=== PATIENT | male | born 1955 | race Caucasian/White ===

== ENCOUNTER 2020-09-07 07:46 | Day surgery (SDC) | payer MEDICARE, OTHER ==
--- NOTE | 2020-09-04 07:17 | PCM.SN.2 ---
- Free Text/Narrative Note: Left selective femoral nerve block at the adductor canal for post-procedure pain control under US guidance requested by Dr. Rivera. Time Out: 1315 Start: 1316 End: 1328 Chart reviewed. Consent signed. Questions answered. Appropriate monitors applied. Time out performed. Left mid-shaft femur identified with ultrasound, scanning medially of femur, the femoral artery in the adductor canal visualized, and the femoral nerve located laterally to the artery. The skin was prepped lateral to the ultrasound probe with chlorahexadine times two. The 21ga 4 insulated block needle was inserted under direct ultrasound guidance into the adductor canal. 20mL of 0.5% ropivacaine with 1:200,000 epinephrine was injected circumferentially around the nerve with intermittent negative aspiration noted. Patient tolerated the procedure well. Sterile technique noted along with sterile gloves, mask, and sterile probe cover. See picture on progress note and vital signs on nurses notes. Block completed in PACU. Thank you, Marlin Amos CRNA
[~2020-09-07 07:46] MED LIST: EPINEPHrine 1 MG/ML SDV ONE; Lactated Ringers 1,000 ML IV SCH; Lidocaine 1%/Sod Bicarbonate in NS 8.4% 1 ML Syringe IDERM PRN; Ropivacaine 0.5% 5 MG/ML 30 ML SDV ONE; Sodium Chloride 0.9% 10 ML Syringe FLUSH PRN
[2020-09-07] MEDS ORDERED: Triamcinolone Acetonide 40 MG/ML 1 ML SDV ONE (08:24)
--- NOTE | 2020-09-07 08:47 | PCM.PREANE ---
Preanesthetic Assessment - Procedure Proposed Procedure: Left Total Knee Arthroplasty with Right Knee Steroid Injection - Anesthesia/Transfusion/Family Hx Anesthesia History: Prior Anesthesia Without Reaction Family History of Anesthesia Reaction: No Transfusion History: Prior Transfusion Without Reaction Intubation History: Unknown - Review of Systems General: No Symptoms Pulmonary: No Symptoms (2 beers per day History of a touch of asthma no inhaler noted) Cardiovascular: No Symptoms (HTN), Dyspnea on Exertion Gastrointestinal: No Symptoms (History of constipation after surgery; "stomach gets paralyzed.") Neurological: No Symptoms (Lower back pain rated: 0/10 right knee pain 7/10, left knee 4/10) Other: Reports: Easy Bruising, Sinus Problem (allergic rhinitis), Neck Pain (arthritis with extension), Depression (situational) - Physical Assessment NPO Status Date: 09/06/20 NPO Status Time: 17:00 Vital Signs: Last Vital Signs Temp 36.6 C 09/07/20 07:50 Pulse 94 09/07/20 07:50 Resp 18 09/07/20 07:50 BP 135/95 H 09/07/20 07:50 Pulse Ox 95 09/07/20 07:50 Height: 1.78 m Weight: 123.377 kg ASA Class: 3 Mental Status: Alert & Oriented x3 Airway Class: Mallampati = 2 Dentition: Reports: Normal Dentition, Caries Thyro-Mental Finger Breadths: 3 Mouth Opening Finger Breadths: 3 ROM/Head Extension: Full Lungs: Clear to Auscultation, Normal Respiratory Effort Cardiovascular: Regular Rate, Regular Rhythm, No Murmurs - Lab Values: All labs reviewed and noted and within acceptable ranges to proceed with scheduled procedure. - Imaging/EKG Impressions: Stress Test: negative, EF= 66-70% EKG NSR with RBBB rate= 100 - Allergies Allergies/Adverse Reactions: Allergies Allergy/AdvReac Type Severity Reaction Status Date / Time erythromycin base Allergy Nausea Verified 09/04/20 12:17 morphine Allergy Rash Verified 09/04/20 12:17 - Anesthesia Plan Pre-Op Medication Ordered: None - Acknowledgements Anesthesia Type Planned: Spinal (Left Adductor Canal Block under US guidance for post operative pain control requested by Dr. Rivera.) Pt an Appropriate Candidate for the Planned Anesthesia: Yes Alternatives and Risks of Anesthesia Discussed w Pt/Guardian: Yes Pt/Guardian Understands and Agrees with Anesthesia Plan: Yes PreAnesthesia Questionnaire HEENT History: Reports: Allergic Rhinitis, Impaired Vision, Other (See Below) Other HEENT History: wears glasses Cardiovascular History: Reports: None Respiratory History: Reports: None Gastrointestinal History: Reports: Cholelithiasis, Other (See Below) Other Gastrointestinal History: incisional hernia with repair x 2, small intesting surgery (multiple) Genitourinary History: Reports: None MOLD CLOSER HELPER History: Reports: None Musculoskeletal History: Reports: Osteoarthritis, Other (See Below) Other Musculoskeletal History: low back pain, knee pain Neurological History: Reports: None Psychiatric History: Reports: None Endocrine/Metabolic History: Reports: None Hematologic History: Reports: None Immunologic History: Reports: None Oncologic (Cancer) History: Reports: None Dermatologic History: Reports: None - Infectious Disease History Infectious Disease History: Reports: None - Past Surgical History Head Surgeries/Procedures: Reports: None HEENT Surgical History: Reports: None Cardiovascular Surgical History: Reports: None Respiratory Surgical History: Reports: None GI Surgical History: Reports: Appendectomy, Cholecystectomy Female Surgical History: Reports: None Male Surgical History: Reports: None Endocrine Surgical History: Reports: None Neurological Surgical History: Reports: None Oncologic Surgical History: Reports: None Dermatological Surgical History: Reports: None - SUBSTANCE USE Tobacco Use Status *Q: Never Tobacco User Days Per Week of Alcohol Use: 7 Number of Drinks Per Day: 2 Total Drinks Per Week: 14 Recreational Drug Use History: No - HOME MEDS Home Medications: Home Meds Acetaminophen [Tylenol] 650 mg PO Q4H PRN 09/04/20 [History] Cholecalciferol (Vitamin D3) [Vitamin D3] 5,000 unit PO DAILY 09/04/20 [History] Loratadine [Claritin] 10 mg PO DAILY 09/04/20 [History] Losartan [Cozaar] 25 mg PO DAILY 09/04/20 [History] guaiFENesin [Mucinex] 600 mg PO BID PRN 09/04/20 [History] Aspirin [Aspirin EC] 325 mg PO BID #84 tab 09/07/20 [Rx] Cyclobenzaprine [Flexeril] 10 mg PO BID PRN #20 tab 09/07/20 [Rx] oxyCODONE 5 - 10 mg PO Q4H PRN #30 tab 09/07/20 [Rx] - CURRENT (IN HOUSE) MEDS Current Meds: Current Medications Epinephrine HCl 0.3 mg/Cefuroxime Sodium 750 mg/Ketorolac Tromethamine 30 mg/Sodium Chloride 7.9 ml 0 mg .XX ASDIRECTED PRN PRN Reason: Pain Stop: 09/07/20 13:00 Lactated Ringer's (Ringers, Lactated) 1,000 mls @ 125 mls/hr IV ASDIRECTED RAJIV Stop: 09/07/20 23:00 Lidocaine/Sodium Bicarbonate (Lidocaine 1%/Sod Bicarbonate In Ns 8.4% 1 Ml Syringe) 0.25 ml IDERM ONETIME PRN PRN Reason: Prior to IV Start Stop: 09/07/20 18:00 Sodium Chloride (Sodium Chloride 0.9% 10 Ml Syringe) 10 ml FLUSH ASDIRECTED PRN PRN Reason: Keep Vein Open Stop: 09/07/20 18:00 Discontinued Medications Bupivacaine HCl (Bupivacaine 0.25% 10 Ml Sdv) Confirm Administered Dose 10 ml .ROUTE .STK-MED ONE Stop: 09/07/20 08:25 Epinephrine HCl (Epinephrine 1 Mg/Ml Sdv) Confirm Administered Dose 1 mg .ROUTE .STK-MED ONE Stop: 09/07/20 06:16 Ropivacaine (Ropivacaine 0.5% 5 Mg/Ml 30 Ml Sdv) Confirm Administered Dose 30 ml .ROUTE .STK-MED ONE Stop: 09/07/20 06:16 Tranexamic Acid (Tranexamic Acid 1,000 Mg/10 Ml Amp) Confirm Administered Dose 1,000 mg .ROUTE .STK-MED ONE Stop: 09/07/20 08:25 Triamcinolone Acetonide (Triamcinolone Acetonide 40 Mg/Ml 1 Ml Sdv) Confirm Administered Dose 80 mg .ROUTE .STK-MED ONE Stop: 09/07/20 08:25 Vancomycin HCl (Vancomycin 1 Gm Sdv) Confirm Administered Dose 1 gm .ROUTE .STK- MED ONE Stop: 09/07/20 08:25
[2020-09-07] MEDS ORDERED: Propofol 200 MG/20 ML SDV ONE ×2 (09:01→10:22)
[2020-09-07] MEDS ORDERED: Lidocaine 1% 4 ML ONE (09:01)
[2020-09-07] MEDS ORDERED: fentaNYL 100 MCG/2 ML SDV ONE (09:02)
[2020-09-07] MEDS ORDERED: Midazolam 1 MG/ML 2 ML SDV ONE (09:02)
[2020-09-07] MEDS ORDERED: ceFAZolin 1 GM Vial ONE (09:05)
[2020-09-07] MEDS ORDERED: Lactated Ringers 1,000 ML ONE (09:52)
[2020-09-07] MEDS ORDERED: Ondansetron 4 MG/2 ML SDV ONE (09:58)
[2020-09-07] MEDS ORDERED: Ondansetron 4 MG/2 ML SDV IVPUSH PRN ×2 (10:06→11:37)
[2020-09-07] MEDS ORDERED: fentaNYL 100 MCG/2 ML SDV IVPUSH PRN (10:06)
[2020-09-07] MEDS: Bupivacaine 0.25% 10 ML SDV ONE ×2 (10:30→11:24)
[2020-09-07] MEDS: Vancomycin 1 GM SDV ONE ×2 (10:33→11:06)
[2020-09-07] MEDS: EPINEPHrine 0.3 MG, Cefuroxime 750 MG, Ketorolac 30 MG, Sodium Chloride 0.9% 7.9 ML PRN ×8 (10:34→10:59)
--- NOTE | 2020-09-07 11:37 | PCM.POSTAN ---
POST ANESTHESIA ASSESSMENT - MENTAL STATUS Mental Status: Alert, Oriented - VITAL SIGNS Vital Signs: Last Vital Signs Temp 36.5 C 09/07/20 11:28 Pulse 94 09/07/20 07:50 Resp 20 09/07/20 11:28 BP 115/73 09/07/20 11:28 Pulse Ox 96 09/07/20 11:28 - RESPIRATORY Respiratory Status: Respiratory Rate WNL, Airway Patent, O2 Saturation Stable, Supplemental Oxygen - CARDIOVASCULAR CV Status: Pulse Rate WNL, Blood Pressure Stable - GASTROINTESTINAL GI Status: No Symptoms - PAIN Pain Score: 0 - POST OP HYDRATION Hydration Status: Adequate & Stable
[2020-09-07] MEDS ORDERED: oxyCODONE 5 MG Tab PO PRN (12:29)
[2020-09-07] MEDS ORDERED: Cyclobenzaprine 10 MG Tab PO ONE (12:45)
--- NOTE | 2020-09-07 12:57 | CR ---
Left knee: AP and crosstable lateral views of the left knee were obtained utilizing portable technique. Comparison: No prior knee study other than preoperative CT exam. Knee prosthesis is seen. Patellar prosthesis is also noted. Components are aligned. Soft tissue air is noted. No underlying bony abnormality is appreciated. Impression: 1. Satisfactory postoperative radiographic appearance of recently placed left knee prosthesis. Diagnostic code #2
--- NOTE | 2020-09-07 13:40 | PCM48HPAN ---
Post Anesthesia Note - EVALUATION WITHIN 48HRS OF ANESTHETIC Vital Signs in Normal Range: Yes Patient Participated in Evaluation: Yes Respiratory Function Stable: Yes Airway Patent: Yes Cardiovascular Function Stable: Yes Hydration Status Stable: Yes Pain Control Satisfactory: Yes Nausea and Vomiting Control Satisfactory: Yes Mental Status Recovered: Yes Vital Signs: Last Vital Signs Temp 36.5 C 09/07/20 12:15 Pulse 89 09/07/20 13:00 Resp 16 09/07/20 13:00 BP 133/81 09/07/20 13:00 Pulse Ox 99 09/07/20 13:00
--- NOTE | 2020-09-17 11:35 | PCM.OPNOTE ---
- General Post-Op/Procedure Note Date of Surgery/Procedure: 09/07/20 Operative Procedure(s): left total knee arthroplasty with right knee steroid injection Pre Op Diagnosis: bilateral knee osteoarthrosis Post-Op Diagnosis: Same Anesthesia Technique: Local, MAC, Spinal Primary Surgeon: David Rivera Anesthesia Provider: Marlin Amos Coldfusion: Jennifer Watkins Coldfusion: Michelle Hinkle EBL in mLs: 150 Complications: None Condition: Good Free Text/Narrative:: 08/26 9mm 35x10
--- NOTE | 2020-09-22 07:33 | OR ---
DATE OF OPERATION: 09/07/2020 SURGEON: David Rivera MD OPERATION PERFORMED: Left total knee arthroplasty with [employer] with right knee corticosteroid injection. PREOPERATIVE DIAGNOSIS: Bilateral knee osteoarthrosis. POSTOPERATIVE DIAGNOSIS: Bilateral knee osteoarthrosis. ANESTHESIA: Local MAC with spinal. ANESTHESIA PROVIDER: Marlin Amos CRNA ASSISTANTS: Jennifer Watkins PA-C; and Michelle Hinkle LPN. ESTIMATED BLOOD LOSS: 150 mL. COMPLICATIONS: None. CONDITION: Stable. IMPLANTS: 1. Barbara size 5 press-fit CR femur. 2. Hinton size 5 press-fit tibial baseplate. 3. Hinton size 5 9 mm CS polyethylene insert. 4. Barbara size 35 x 10 mm press-fit asymmetric patella. DESCRIPTION OF PROCEDURE: The patient was identified in the preoperative holding area. Proper site was marked and identified by surgeon. The patient was taken back to the operative theater, where after adequate anesthesia, the patient's left lower extremity had a nonsterile tourniquet applied and was then sterilely prepped and draped in the usual sterile fashion. OR time-out was performed. The patient received 2 g IV Ancef. Foot pena was then applied to the left lower extremity. Left lower extremity was exsanguinated. Tourniquet was insufflated to 250 mmHg. At this time, medial parapatellar arthrotomy was created. Deep fibers of the MCL were raised and anterior fat pad was resected. Attention was turned to the patella. Patella measured a 28 and was resected to a 16 for a 35 x 10 mm patella. Drill holes were then drilled and found to be adequate. At this time, 2 4.0 Schanz pins were placed intra-incisionally in the femur and 2 extra-incisionally on the tibia. Further, [employer] robotic arrays and checkpoints were then placed on the femur and the tibia. Hip center of the rotation was obtained. Medial and lateral malleoli were marked. Checkpoints were then marked. 40 points were then obtained off the femur and the tibia for the Barbara [employer] robotic plan. Osteophytes were removed. The patient's knee was brought into full extension. Varus valgus stresses were applied as well as at 90 degrees of flexion. The [employer]inton [employer] robotic plan for this patient was then undertaken for a size 5 femur and size 5 tibia. A straight saw blade was then brought in. The tibial cut as well as the anterior femoral cut, anterior chamfer cut, and posterior femoral cuts were then completed. Saw blade was then switched and the distal femoral cut as well as posterior chamfer cut was completed. All bony fragments were removed. Medial and lateral meniscus were resected as well as any posterior osteophytes. Trial implants of size 5 and 5 were then placed and a 9 mm trial poly was placed. The patient's knee was brought into full extension. Varus valgus stresses were applied. There was no instability noted. The patient had full knee extension and flexion with no signs of liftoff or instability. Patella was tracking centrally at this time. Drill holes were drilled for the femur. Tibia was stamped and drilled into proper rotation. Size 5 tibia was then impacted into place. Size 5 femur was impacted into place and a 9 mm polyethylene was impacted into place. The patient's knee was brought to full extension and a patella 35 x 10 mm was press-fit in place. Tourniquet was deflated. Bleeders were cauterized. Periarticular injection was completed. 1 L pulse lavage irrigation with Ancef was irrigated through the knee along with 400 mL of IrriSept irrigation throughout the case. Topical tranexamic acid and vancomycin powder were applied. A #2 barbed suture was used for closure of the medial parapatellar arthrotomy. 2-0 Vicryl was used subcutaneously as well as Stratafix and Prineo was used for skin closure. Please note that the [employer] robotic arrays and pins were removed before closure. Sterile soft dressing was applied to the patient's knee. The patient's knee was wrapped with Tarik wrap and then was sent to the PACU in stable condition. MMODAL /[id number]
== END 2020-09-07 15:12 | disposition home or self-care (01) ==
LOC: JD.SDS 07:46
PROVIDERS: ATTEND Orthopaedic Surgery
DX: M17.0 Bilateral primary osteoarthritis of knee (principal); M25.762 Osteophyte, left knee; G89.29 Other chronic pain; Z88.6 Allergy status to analgesic agent; Z88.1 Allergy status to other antibiotic agents
CPT/HCPCS: 73560; 97110; 97116; 97161; 97165; 97535; A9270; C1713; C1776; J0171; J0690; J0697; J1885; J2250; J2370; J2405; J2704; J2795; J3010; J3301; J3370; J3490; J7120; 01402; 64450; 76942

== ENCOUNTER 2021-10-06 07:24 | Day surgery (SDC) | payer MEDICARE, OTHER ==
[2021-10-06] MEDS: Lactated Ringers 1,000 ML IV SCH ×2 (07:15→10:18)
[~2021-10-06 07:24] MED LIST changes: +Acetaminophen 325 MG Tab PO SCH; +HYDROmorphone 0.5 MG/0.5 ML Syringe IVPUSH PRN; +Lidocaine 1% 5 ML VIAL ONE; +Midazolam 1 MG/ML 2 ML SDV ONE; +Morphine 8 MG, EPINEPHrine 0.3 MG, Cefuroxime 750 MG, Ketorolac 30 MG, Sodium Chloride ... PRN; +Ondansetron 4 MG/2 ML SDV IVPUSH PRN; +Pregabalin 25 MG Cap PO SCH; +Propofol 200 MG/20 ML SDV ONE; +Sodium Chloride 0.9% 10 ML Syringe FLUSH SCH; +Vancomycin 1 GM SDV ONE; +ceFAZolin 1 GM Vial ONE; +fentaNYL 100 MCG/2 ML SDV IVPUSH PRN; +fentaNYL 100 MCG/2 ML SDV ONE; +oxyCODONE ER 10 MG TAB.ER PO SCH
[2021-10-06] MEDS ORDERED: EPINEPHrine 1 MG/ML SDV ONE (07:42)
[2021-10-06] MEDS ORDERED: Ropivacaine 0.5% 5 MG/ML 30 ML SDV ONE (07:42)
[2021-10-06] MEDS ORDERED: Phenylephrine 1% 10 MG/ML SDV ONE (08:03)
[2021-10-06] MEDS ORDERED: Sodium Chloride 0.9% 100 ML ONE (08:10)
[2021-10-06] MEDS ORDERED: Propofol 200 MG/20 ML SDV ONE ×2 (08:57→12:32)
[2021-10-06] MEDS ORDERED: Ketorolac 30 MG/ML SDV ONE (09:15)
[2021-10-06] MEDS ORDERED: oxyCODONE 5 MG Tab PO PRN (10:14)
== END 2021-10-06 13:10 | disposition home or self-care (01) ==
LOC: JD.SDS 07:24
PROVIDERS: ATTEND Orthopaedic Surgery
DX: M17.11 Unilateral primary osteoarthritis, right knee (principal); I10 Essential (primary) hypertension; H54.7 Unspecified visual loss; Z88.1 Allergy status to other antibiotic agents; Z86.718 Personal history of other venous thrombosis and embolism; Z79.899 Other long term (current) drug therapy; Z79.01 Long term (current) use of anticoagulants
CPT/HCPCS: 0055T; 27447; 73560; 97116; 97161; A9270; C1713; C1776; J0171; J0690; J0697; J1885; J2250; J2270; J2370; J2704; J2795; J3010; J3370; J7120; 76942